=== PATIENT | female | born 1950 | race Caucasian/White ===

== ENCOUNTER → 2017-01-09 | Outpatient (CLI) | payer BC ==
--- NOTE | 2017-01-09 11:20 | KCIC ---
Chest PA and lateral Indication: Severe right lower anterior rib pain, fall. Time of exam 10:59 a.m. The heart size is mildly enlarged. The lungs are clear. No parenchymal contusion, effusion or pneumothorax is seen. No definite rib fracture is detected. Impression: No acute feature is identified. Electronically signed by: Nicanor Mclean MD (Jan 09, 2017 11:19:22)
--- NOTE | 2017-01-09 11:21 | KCIC ---
X-ray right ribs Indication: Severe right lower anterior rib pain, status post fall. Time of exam 10:51 a.m. No displaced rib fracture is identified. No parenchymal contusion, effusion or pneumothorax is seen. Impression: No displaced rib fracture is detected. Electronically signed by: Nicanor Mclean MD (Jan 09, 2017 11:20:18)
== END | disposition home or self-care (01) ==
LOC: KCIC 10:35
PROVIDERS: ATTEND Nurse Practitioner Family
DX: R07.81 Pleurodynia (principal); W19.XXXA Unspecified fall, initial encounter
CPT/HCPCS: 71020; 71100

== ENCOUNTER → 2018-08-29 | Outpatient (CLI) | payer BC, MEDICARE ==
--- NOTE | 2018-08-29 17:07 | KCIC ---
History: Postmenopausal screening, calcium use, white female. Comparison: None. Findings: Bone Densitometry was performed with dual photon absorption of the lumbar spine and left hip. Lumbar Spine: Bone density is 1.147 g/cm2 for L1-L4. T-Score is 0.9. Z-score is 2.8. Left hip: Bone density is 0.830 g/cm2. T-Score is -0.9. Z-score is 0.4. IMPRESSION: Bone mineral density of the lumbar spine and left hip appears within normal limits. World Health definition of osteoporosis and osteopenia: Normal = T-Score at or above -1.0; osteopenia = T-score between -1.0 and -2.5; osteoporosis = T-score at or below -2.5 Electronically signed by: Carl Ayala MD (08/29/2018 5:03 PM) [id number]
== END | disposition home or self-care (01) ==
LOC: KCIC DEXA 15:06
PROVIDERS: ATTEND Nurse Practitioner Family
DX: Z13.820 Encounter for screening for osteoporosis (principal); Z82.62 Family history of osteoporosis; Z78.0 Asymptomatic menopausal state
CPT/HCPCS: 77080

== ENCOUNTER → 2018-09-10 | Outpatient (CLI) | payer BC, MEDICARE ==
--- NOTE | 2018-09-10 17:17 | KCIC ---
RS Compliance Statement: One or more of the following individualized dose reduction techniques were utilized for this examination: 1. Automated exposure control 2. Adjustment of the mA and/or kV according to patient size 3. Use of iterative reconstruction technique Coronary calcium score CT chest without contrast History: 67-year-old female with paternal family history of heart disease. Technique: With retrospective electrocardiogram gating 2.5 mm thick axial reconstructed noncontrast images of the chest at the level of the coronary arteries was performed. Images were post processed on a [employer] workstation and calcium score calculated using the modified Agatston Janowitz protocol. Findings: Total coronary calcium score is 0. This places the patient in the 0th percentile rank which means that 100% of females between the ages of 66-70 have a higher calcium score than this patient. This is a no identifiable plaque burden and very low cardiovascular disease risk. This is based on the calcium score of 0 of the left main coronary artery, 0 of the left anterior descending artery, score of 0 of the left circumflex artery and score of 0 of the right coronary artery. Noncoronary findings demonstrate cardiac size upper limits of normal. Ectasia of the ascending thoracic aorta, diameter 4.2 cm. Pulmonary trunk is normal caliber. No pericardial effusion. Visualized upper abdomen unremarkable. Minimal atelectasis or scarring in the basilar left lower lobe. IMPRESSION: 1. Patient's total calcium score is 0. 2. Ectasia of the ascending thoracic aorta. Electronically signed by: Juan M Barone MD (09/10/2018 5:13 PM) [id number]
== END | disposition home or self-care (01) ==
LOC: KCIC CT 14:54
PROVIDERS: ATTEND Internal Medicine Cardiovascular Disease
DX: I34.1 Nonrheumatic mitral (valve) prolapse (principal); Z82.49 Family history of ischemic heart disease and other diseases of the circulatory system
CPT/HCPCS: 75571

== ENCOUNTER → 2020-04-01 | Outpatient (CLI) | payer MEDICARE ==
--- NOTE | 2020-04-01 10:27 | CARD ---
MR#: [id number] Date of Study: 04/01/2020 Ordering Physician: JONO CONNORS, Referring Physician: JONO CONNORS, Tech: Ro Mendes [facility] APPROVED REPORT EXAM: Two-dimensional and M-mode echocardiogram with Doppler and color Doppler. Other Information Quality : Good INDICATION Ascending Aortic Anuerysm 2D DIMENSIONS RVDd2.5 (2.9-3.5cm)Left Atrium(2D)2.9 (1.6-4.0cm) IVSd0.9 (0.7-1.1cm)Aortic Root(2D)2.9 (2.0-3.7cm) LVDd4.8 (3.9-5.9cm)LVOT Diameter2.0 (1.8-2.4cm) PWd1.0 (0.7-1.1cm)LVDs2.9 (2.5-4.0cm) FS (%) 30.0 %SV76.0 ml LVEF(%)60.0 (>50%) Aortic Valve AoV Peak Royal.149.5cm/sAoV VTI36.0cm AO Peak GR.8.9mmHgLVOT Peak Royal.146.5cm/s AO Mean GR.5mmHgAVA (VMAX)2.95cm2 CARTER (VTI)2.80cm2 Mitral Valve MV E Uujabuxk964.7cm/sMV DECEL LSUN896az MV A Mxogjmbi92.6cm/sE/A Ratio1.2 Tricuspid Valve TR P. Qhlonntt554fu/sRAP PBXJKFMY1tbTg TR Peak Gr.29npLtKRRU72gvOr Pulmonary Vein S1 Txqhgyhm33.5cm/sD2 Nftwaahq33.7cm/s LEFT VENTRICLE The left ventricle is normal size. There is normal left ventricular wall thickness. The left ventricu lar systolic function is normal and the ejection fraction is within normal range. The Ejection Fracti on is 55-60%. There is normal LV segmental wall motion. Transmitral Doppler flow pattern is Grade I-a bnormal relaxation pattern. RIGHT VENTRICLE The right ventricle is normal size. The right ventricular systolic function is normal. ATRIA The left atrium size is normal. The right atrium size is normal. The interatrial septum is intact wit h no evidence for an atrial septal defect or patent foramen ovale as noted on 2-D or Doppler imaging. AORTIC VALVE The aortic valve is calcified but opens well. Doppler and Color Flow revealed trace aortic regurgitat ion. There is no significant aortic valvular stenosis. MITRAL VALVE The mitral valve is calcified but opens well. There is no evidence of mitral valve prolapse. There is no mitral valve stenosis. Doppler and Color-flow revealed trace to mild mitral regurgitation. TRICUSPID VALVE The tricuspid valve is normal in structure and function. Doppler and Color Flow revealed mild tricusp id regurgitation. The PA pressure was estimated at 29 mmHg. There is no tricuspid valve stenosis. PULMONIC VALVE The pulmonic valve is not well visualized. Doppler and Color Flow revealed trace to mild pulmonic ling vular regurgitation. There is no pulmonic valvular stenosis. GREAT VESSELS The aortic root is normal in size. The ascending aorta is moderately dilated at 4.0 cm. The IVC is no rmal in size and collapses >50% with inspiration. PERICARDIAL EFFUSION There is no evidence of significant pericardial effusion. Critical Notification Critical Value: No <Conclusion> The left ventricular systolic function is normal and the ejection fraction is within normal range. Th e Ejection Fraction is 55-60%. There is normal LV segmental wall motion. The ascending aorta is moderately dilated at 4.0 cm. Signed by : Jono Connors, Electronically Approved : 04/01/2020 10:27:31
== END ==
LOC: ECHO 08:51
PROVIDERS: ATTEND Internal Medicine Cardiovascular Disease
DX: I08.8 Other rheumatic multiple valve diseases (principal); I71.2 Thoracic aortic aneurysm, without rupture
CPT/HCPCS: 93306

== ENCOUNTER → 2020-04-18 | Outpatient (CLI) | payer MEDICARE ==
--- NOTE | 2020-04-18 12:05 | RAD ---
MR#: [id number] Date of Study: 04/18/2020 Ordering Physician: JONO CONNORS, Referring Physician: JONO CONNORS, Tech: Leigh Ann Fuentes, RDMS, RVT, RTR APPROVED REPORT Patient Location: OUT-PATIENT Laterality:Bilateral Indications Dizziness and Vertigo Unsteady Gait Risk Factors PAD Doppler Spectral Velocity Analysis Right Left pCCA 76/18 cm/spCCA 94/19 cm/s mCCA 87/23 cm/smCCA 72/19 cm/s dCCA 63/23 cm/sdCCA 69/21 cm/s Bulb 61/20 cm/sBulb 66/17 cm/s pICA 57/19 cm/spICA 77/25 cm/s Pernell 87/26 cm/smICA 111/36 cm/s dICA 95/21 cm/sdICA 85/30 cm/s Vert. 53/6 cm/sVert. 41/12 cm/s ICA/CCA 1.09ICA/CCA 1.54 Findings Mcghee scale images demonstrate bilateral plaque at the level of the carotid bifurcation of a mild to m oderate degree. No focal stenosis noted. Spectral waveforms and velocities are grossly within normal limits. Overall 0 to less than 50% stenos is based on velocity criteria. Antegarde vertebral velocities. Normal ICA to CCA ratios. Critical Notification Critical Value: No <Conclusion> 1. No significant caortid occlusive disease. Signed by : Jono Connors, Electronically Approved : 04/18/2020 12:04:38
--- NOTE | 2020-04-18 12:08 | RAD ---
MR#: [id number] Date of Study: 04/18/2020 Ordering Physician: JONO CONNORS, Referring Physician: JONO CONNORS, Tech: Leigh Ann Fuentes, ARMANDO, RVT, RTR APPROVED REPORT Patient Location: OUT-PATIENT Indications PAD Leg Pain; Unsteady Gait; Outside Study showed Left Lower Extremity Arterial Disease VELOCITY AND DOPPLER WAVEFORM ANALYSIS RIGHT cm/secWaveformSeverity LEFT cm/secWaveform Severity pCFA 195.4pCFA 118.6 dCFA 129.8dCFA 90.4 Prof Fem Art. 107.3Prof Fem Art. 84.6 Fem Art Prox. 81.6Fem Art Prox. 112.1 Fem Art Mid. 115.7Fem Art Mid. 109.2 Fem Art Dist. 86.0Fem Art Dist. 93.3 Pop Art(AK) 69.4Pop Art(AK) 57.1 Pop Art(Fossa) 62.2Pop Art(AK) 71.6 Pop Art(BK) 78.8Pop Art(BK) 62.2 COPYRIGHT CLERK Prox. 42.2PTA Prox. 53.5 COPYRIGHT CLERK Dist. 64.8PTA Dist. 33.5 Per Art Prox. 70.1Per Art Prox. 85.3 SO Prox. 34.1ATA Prox. 46.8 DPA 25DPA 41 Findings Mcghee scale images demonstrate mild diffuse irregularities. On the right, no focal stenosis above the knee. Below the knee there is likely moderate disease invol ving the AT vessels. On the left, no focal stenosis noted. Probable mild to moderate below knee disea se. All waveforms are biphasic and triphasic. Critical Notification Critical Value: No <Conclusion> 1. No significant disease in the bilateral lower extremity vessels. Signed by : Jono Connors, Electronically Approved : 04/18/2020 12:08:01
--- NOTE | 2020-04-18 12:11 | RAD ---
MR#: [id number] Date of Study: 04/18/2020 Ordering Physician: JONO CONNORS, Referring Physician: JONO CONNORS, Tech: Leigh Ann Fuentes RDMS, RVT, RTR APPROVED REPORT Patient Location: OUT-PATIENT Exam Type: Ankle to Brachial Index Indications PAD Leg Pain; Outside Exam showed Left Lower Extremity Arterial Disease Pressures/Indices RightABI LeftABI Brachial 127mmHgBrachial 124mmHg Ankle(PT) 458vqVn1.15Ankle(PT) 434xgCv2.14 Ankle(DP) 141mmHgAnkle(DP) 141mmHg Findings Normal bilateral TYLER Critical Notification Critical Value: No <Conclusion> 1. Normal TYLER Signed by : Jono Connors, Electronically Approved : 04/18/2020 12:11:16
== END | disposition home or self-care (01) ==
LOC: US 11:31
PROVIDERS: ATTEND Internal Medicine Cardiovascular Disease
DX: I65.23 Occlusion and stenosis of bilateral carotid arteries (principal); I73.9 Peripheral vascular disease, unspecified
CPT/HCPCS: 93880; 93922; 93925

== ENCOUNTER → 2021-07-06 | Outpatient (CLI) | payer MEDICARE ==
--- NOTE | 2021-07-06 16:57 | CARD ---
MR#: [id number] Date of Study: 07/06/2021 Ordering Physician: JONO CONNORS, Referring Physician: JONO CONNORS, Tech: Jesus Manuel Raygoza [facility] APPROVED REPORT EXAM: Two-dimensional and M-mode echocardiogram with Doppler and color Doppler. Other Information Quality : GoodHR: 57bpm Rhythm : NSR INDICATION Ascending aortic dilatation 2D DIMENSIONS Left Atrium(2D)3.8 (1.6-4.0cm)IVSd0.9 (0.7-1.1cm) Aortic Root(2D)3.2 (2.0-3.7cm)LVDd4.3 (3.9-5.9cm) PWd0.9 (0.7-1.1cm)LVDs2.2 (2.5-4.0cm) FS (%) 50.0 %SV69.4 ml LVEF(%)81.6 (>50%) Aortic Valve AoV Peak Royal.147.9cm/sAoV VTI34.3cm AO Peak GR.8.7mmHgLVOT Peak Royal.132.7cm/s LVOT VTI 30.16cmAO Mean GR.5mmHg Mitral Valve MV E Zxkwkgdd38.8cm/sMV DECEL HDZR259gj MV A Iyuytiee34.1cm/sMV MJY45kk E/A Ratio0.9MVA (PHT)3.52cm2 TDI E/Lateral E'9.8E/Medial E'10.9 Pulmonary Valve PV Peak Jernshvl35.9cm/sPV Peak Grad.3mmHg Tricuspid Valve TR P. Habjlfni928wy/sTR Peak Gr.22mmHg Pulmonary Vein S1 Avihzbjd40.8cm/sD2 Veklinry44.5cm/s LEFT VENTRICLE The left ventricle is normal size. There is normal left ventricular wall thickness. The left ventricu lar systolic function is normal. The ejection fraction is estimated at 60 to 65%. There is normal LV segmental wall motion. Transmitral Doppler flow pattern is Grade I-abnormal relaxation pattern. No le ft ventricle thrombus noted on this study. There is no ventricular septal defect visualized. There is no left ventricular aneurysm. There is no mass noted in the left ventricle. RIGHT VENTRICLE The right ventricle is normal size. There is normal right ventricular wall thickness. The right ventr icular systolic function is normal. ATRIA The left atrium is mildly dilated. The right atrium size is normal. The interatrial septum is intact with no evidence for an atrial septal defect or patent foramen ovale as noted on 2-D or Doppler imagi ng. AORTIC VALVE The aortic valve is trileaflet. Doppler and Color Flow revealed no significant aortic regurgitation. There is no significant aortic valvular stenosis. There is no aortic valvular vegetation. MITRAL VALVE The mitral valve is thickened but opens well. There is no evidence of mitral valve prolapse. There is no mitral valve stenosis. Doppler and Color-flow revealed mild mitral regurgitation. TRICUSPID VALVE The tricuspid valve is normal in structure and function. Doppler and Color Flow revealed trace to mil d tricuspid regurgitation. There is no tricuspid valve prolapse or vegetation. There is no tricuspid valve stenosis. PULMONIC VALVE The pulmonary valve is normal in structure and function. Doppler and Color Flow revealed no pulmonic valvular regurgitation. There is no pulmonic valvular stenosis. GREAT VESSELS The aortic root is normal in size. The ascending aorta is dilated at 4.1cm The pulmonary artery is no rmal. The IVC is normal in size and collapses >50% with inspiration. PERICARDIAL EFFUSION There is no pleural effusion. There is no evidence of significant pericardial effusion. Critical Notification Critical Value: No <Conclusion> The left ventricular systolic function is normal. The ejection fraction is estimated at 60 to 65%. Mild mitral regurgitation. Trace to mild tricuspid regurgitation. The ascending aorta is dilated at 4.1cm There is no evidence of significant pericardial effusion. Signed by : Vargas Becerra, Electronically Approved : 07/06/2021 16:56:45
== END ==
LOC: ECHO 09:32
PROVIDERS: ATTEND Internal Medicine Cardiovascular Disease
DX: I08.1 Rheumatic disorders of both mitral and tricuspid valves (principal); I71.2 Thoracic aortic aneurysm, without rupture
CPT/HCPCS: 93306

== ENCOUNTER → 2022-01-15 | Outpatient (CLI) | payer MEDICARE ==
--- NOTE | 2022-01-15 15:51 | KCIC ---
Bilateral digital screening 2-D and 3-D (tomosynthesis) mammogram: Reason for examination: Routine screening. Comparison is made to previous mammograms from 2019, the 03/17/2018. Bilateral mammograms in CC and oblique projections were obtained with 2-D imaging and 3-D tomosynthes is imaging and reviewed on the workstation. Interpretation was made with the benefit of CAD. Findings: Breast density: Category D. The breasts are extremely dense which lowers sensitivity of mammography. There is a 0.7 cm oval circumscribed mass in the 9:00 position of the right breast, approximately 6 c m from the nipple. This was not seen on previous mammograms. No other dominant breast mass is seen. T here are no malignant appearing calcifications or architectural distortion. Impression: There 0.7 cm mass in the 9:00 position of the right breast and further evaluation with targeted right breast ultrasound is recommended. The breasts are extremely dense which lowers sensitivity of mammog reuben. ASSESSMENT: BI-RADS 0. Incomplete. Additional imaging is recommended. Recommendations: Targeted right breast ultrasound. The patient will be contacted with the results and asked to schedule for additional imaging. This pat ient's information has been entered into a reminder system for the patient to be notified with the re sults of her examination and a target date for the next mammogram. Your patient's mammogram demonstrates that she has dense breast tissue (breast density category C or D), which could hide abnormalities, and if she has other risk factors for breast cancer that have bee n identified, she might benefit from supplemental screening tests that may be suggested by you as her ordering physician. Dense breast tissue, in and of itself, is a relatively common condition. Therefo re, this information is not provided to cause undue concern, but rather to raise your awareness and t o promote discussion with your patient regarding the presence of other risk factors, in addition to d ense breast tissue. Electronically signed by: Mirtha Stoddard MD (01/15/2022 3:48 PM) [facility]
== END ==
LOC: KCIC MAMMO 10:33
PROVIDERS: ATTEND Family Medicine
DX: Z12.31 Encounter for screening mammogram for malignant neoplasm of breast (principal)
CPT/HCPCS: 77063; 77067

== ENCOUNTER → 2022-01-25 | Outpatient (CLI) | payer MEDICARE ==
--- NOTE | 2022-01-25 14:42 | KCIC ---
Right breast ultrasound: Reason for examination: Nodule on screening mammogram. Comparison is made to mammographic exam dated 01/15/2022. Ultrasound examination of the right breast and axilla was performed. At the 10:00 position 5 cm from the nipple and probably corresponding to the area of mammographic con cern, there is a 7.8 mm hypoechoic circumscribed lesion which shows some increased echogenicity centr ally and probably represents an intramammary lymph node. No other cystic or solid nodules are seen. N o abnormal appearing lymph nodes are seen in the right axilla. IMPRESSION: 7.8 mm circumscribed nodule probably representing an intramammary lymph node at the 10:00 position 5 cm from the nipple. Recommend 6 month follow-up with ultrasound. BI-RADS Category 3: Probably Benign. "Our facility is accredited by the [employer] Mammography Program." This patient's information has been entered into a reminder system for the patient to be notified wit h the results of her examination and a target date for the next mammogram. Electronically signed by: Zarina Whittaker MD (01/25/2022 2:39 PM) [id number]
== END ==
LOC: KCIC US 12:49
PROVIDERS: ATTEND Family Medicine
DX: R92.2 Inconclusive mammogram (principal)
CPT/HCPCS: 76641